=== PATIENT | female | born 1985 | race Caucasian/White ===

== ENCOUNTER 2024-06-10 15:13 | Inpatient (IN) | payer MEDICARE, SELFPAY ==
[2024-06-10] VITALS (13 sets, daily range): BP systolic 96–128; BP diastolic 52–88; PULSE 81–102; RESP 12–26; TEMP 36.2–37; O2SAT 88–100; BMI 30.4; BMI 30.6
--- NOTE | 2024-06-10 15:29 | EKG12_ITS ---
Test Reason : SOB Blood Pressure : / mmHG Vent. Rate : 096 BPM Atrial Rate : 096 BPM P-R Int : 138 ms QRS Dur : 098 ms QT Int : 392 ms P-R-T Axes : 029 -85 061 degrees QTc Int : 495 ms Normal sinus rhythm Left axis deviation Nonspecific T wave abnormality Prolonged QT Abnormal ECG Confirmed by Justice Hernandez ([id number]), story editor BONNY ALVA ([id number]) on 06/11/2024 10:31:55 AM Referred By: Confirmed By:Justice Hernandez
--- NOTE | 2024-06-10 15:31 | ED.VIS.DYS ---
HPI History of Present Illness Chief Complaint: Shortness of Breath Informant: patient and spouse/S.O. Narrative Narrative: History of asthma currently vaping presents from PCP office 3-day history of worsening cough and dyspnea. States a family member just recent diagnosed RSV pneumonia. Patient reports yesterday pulse ox was in the 30s and 50s she used her significant other's oxygen. Reports chest tightness pain with deep breath. Patient with COVID 2020 hospitalized for 30 days she was not on the ventilator. Reports went home on oxygen for a month. Has been vaccinated with 3 vaccinations of COVID. Denies recent travel or surgeries. No history of PE or DVT. States nothing coming up with the cough. Increasing wheezing at home no history of diabetes. In PCP office pulse ox in the 80s. Sent in here by EMS. Reports home COVID test 2 days ago was negative. Reports symptoms of diarrhea myalgias. PE Risk Factors: Negative for OCP + Smoking + > 35, Recent immobilization, Recent surgery or Recent travel Prior similar symptoms: Yes PFSH PFSH Medical History (Updated 06/10/24 @ 20:14 by Nahed Bang) Bipolar disorder Anxiety Depression Hypothyroidism Rheumatoid arthritis Osteoporosis GERD (gastroesophageal reflux disease) Smoker Asthma Migraines Seizures Home Medications ?Medication ?Instructions ?Recorded ?Last Taken ?Type albuterol sulfate 90 mcg/actuation 2 puff inhalation Q4H PRN 06/10/24 06/10/24 History aerosol inhaler (Ventolin HFA) shortness of breath or wheezing clonazepam 0.5 mg tablet 0.5 mg PO DAILY 06/10/24 06/09/24 History duloxetine 30 mg capsule,delayed 90 mg PO DAILY 06/10/24 06/10/24 History release gabapentin 800 mg tablet 1,600 mg PO TID 06/10/24 06/10/24 History hydroxychloroquine 200 mg tablet 400 mg PO DAILY 06/10/24 06/10/24 History ipratropium 0.5 mg-albuterol 3 mg 3 ml inhalation Q8H PRN shortness 06/10/24 06/09/24 History (2.5 mg base)/3 mL nebulization of breath soln levothyroxine 200 mcg tablet 200 mcg PO DAILY 06/10/24 06/10/24 History quetiapine 300 mg tablet 300 mg PO QHS 06/10/24 06/09/24 History rimegepant 75 mg disintegrating 75 mg PO QODAY 06/10/24 Unknown History tablet (Nurtec ODT) Allergy/AdvReac Type Severity Reaction Status Date / Time leflunomide Allergy Severe Abd Verified 06/10/24 15:21 cramps/diarrhea NSAIDS (Non-Steroidal Allergy Severe Other Verified 06/10/24 15:21 Anti-Inflamma atomoxetine Allergy Intermediate NEEDS Verified 06/10/24 15:21 FOLLOW-UP cefprozil (From Cefzil) Allergy Intermediate Rash Verified 06/10/24 15:21 sucralfate Allergy Intermediate Nausea Verified 06/10/24 15:21 Surgical History (Updated 06/10/24 @ 20:14 by Nahed Bang) History of cholecystectomy Social History Smoking Status: Former smoker ROS ROS ED Constitutional Constitutional ED: Denies chills, fever(s) or sweats Eyes Eyes: Denies change in vision ENT ENT ED: Denies dysphagia or sore throat Cardiovascular Cardiovascular: Reports chest pain; Denies leg edema, palpitations or racing heartbeat Respiratory/Chest Respiratory/Chest: Reports cough, dyspnea and dyspnea on exertion Gastrointestinal Gastrointestinal: Reports diarrhea; Denies abdominal pain, nausea or vomiting Genitourinary Genitourinary ED: Denies dysuria, hematuria or urinary frequency Musculoskeletal Musculoskeletal: Reports myalgias; Denies back pain, extremity pain or neck pain Integumentary Denies rash or wounds Neurologic Neurologic: Denies headache(s), paresthesias or weakness EXAM Physical Exam Const Vital Signs: 06/10/24 15:16 06/10/24 15:18 06/10/24 15:41 Temperature 97.2 F L 97.2 F L Temperature Source Temporal Temporal Pulse Rate 102 H 102 H 97 Respiratory Rate 26 H 26 H 18 Respiratory Effort Respiratory Depth Respiratory Pattern Normal Blood Pressure 96/83 H 96/83 H Blood Pressure Mean 87 87 Pulse Ox 91 91 Oxygen Delivery Method Nasal Cannula Nasal Cannula Oxygen Flow Rate (L/min) 2 2 06/10/24 15:42 06/10/24 15:43 06/10/24 16:18 Temperature 97.2 F L Temperature Source Temporal Pulse Rate 84 Respiratory Rate 13 Respiratory Effort Short of Breath Respiratory Depth Shallow Respiratory Pattern Irregular Blood Pressure 111/58 L Blood Pressure Mean 75 Pulse Ox 98 97 Oxygen Delivery Method Nasal Cannula Room Air Nasal Cannula Oxygen Flow Rate (L/min) 2 2 06/10/24 17:00 06/10/24 17:00 06/10/24 18:00 Temperature 97.2 F L 97.8 F Temperature Source Temporal Temporal Pulse Rate 90 88 86 Respiratory Rate 12 15 15 Respiratory Effort Respiratory Depth Respiratory Pattern Blood Pressure 98/82 H 98/82 H 128/88 H Blood Pressure Mean 87 87 101 Pulse Ox 98 99 99 Oxygen Delivery Method Nasal Cannula Nasal Cannula Oxygen Flow Rate (L/min) 2 Positive well nourished and well developed Constitutional Narrative: 2 L nasal cannula no respiratory distress. General Appearance ED: well developed and NAD HEENT Reports moist mucous membranes normocephalic and atraumatic Eyes EOMs intact bilaterally and conjunctivae normal General Eye ED: Yes normal appearance of both eyes Neck no lymphadenopathy and supple General: Negative for tenderness Chest Wall Chest: Negative for tenderness Resp Resp Narrative: Coarse breath sounds throughout Effort and Inspection: symmetric chest movement; Negative for respiratory distress Cardio regular rhythm and no murmurs Rate: tachycardic Peripheral Pulses: pulses 2+ throughout GI normal to inspection, nondistended, normoactive bowel sounds and non-tender Palpation: Negative for guarding or rebound tenderness present Back/Spine no CVA tenderness and no thoracic nor lumbar tenderness Extremity normal to inspection General Extremety ED: Negative for edema or tenderness General Extremity: Negative for edema Neuro oriented x3 and no sensory deficits noted Sensorium / Orientation: awake and alert Skin no rashes or lesions noted and no wounds MDM MDM MDM Narrative Medical decision making narrative: Interventions / MDM: Differential diagnosis: Pneumonia, hypoxia Diagnosis considered but do not suspect: Sepsis however lactic acid normal. ACS however EKG no ischemic findings and negative cardiac enzymes. pulmonary emboli however CT negative. My EKG interpretation: Sinus rhythm 96, no ST changes. Imaging independently reviewed and interpreted by myself: 1 view chest x-ray right middle lobe infiltrate. Per radiology questionable mass. CT PE study: Infiltrates right side of the lung there is no PE no masses. Per radiology fluid-filled distal esophagus. Also read by radiology. Patient denied any trouble swallowing or any vomiting. External documents reviewed: N/A Test considered but not ordered:N/A ED course: Patient currently on 2 L nasal cannula no respiratory distress. Reported significant low pulse ox at home with COVID-like symptoms. Aerosol treatments ordered dexamethasone COVID flu and RSV test sent. Chest x-ray and labs. Will require admission due to oxygen requirement. COVID, flu, RSV negative. Chest x-ray concern infiltrates, questionable mass per radiologist. She had 18,000 white count she is initially tachycardic on arrival. Sepsis labs of lactic acid and blood culture obtained. Covered with Rocephin and Zithromax. CT chest negative for PE noted multilobar infiltrate. Stable on 3 L oxygen. Discussed with hospitalist Dr. Lin for admission. Re-evaluation: stable Disposition discussed with patient/family/significant other: Patient and significant other Case discussed with consulting clinician: Hospitalist This note was generated with [employer] dictation software. It may contain incorrect words, spelling, and punctuation that were not noted in checking the note before signing. Lab Data Attestation: I reviewed the patient's lab results. Labs: Laboratory Results - last 24 hr 06/10/24 06/10/24 16:02 17:15 WBC 18.7 H RBC 3.72 L Hgb 10.4 L Hct 32.2 L MCV 86.6 MCH 28.0 MCHC 32.3 RDW Std Deviation 48.7 H RDW Coeff of Maxi 15.8 H Plt Count 252 MPV 9.9 Immature Gran % (Auto) 0.500 Neut % (Auto) 86.0 H Lymph % (Auto) 4.4 L [place] % (Auto) 8.6 Eos % (Auto) 0.1 Baso % (Auto) 0.4 Absolute Neuts (auto) 16.0 H Absolute Lymphs (auto) 0.82 L Nucleated RBC % 0 Diff Path Review January foll PT 15.3 H INR 1.2 APTT 36.8 H Sodium 139 Potassium 3.3 L Chloride 109 H Carbon Dioxide 27.0 Anion Gap 3 L BUN 14 Creatinine 1.06 H Estim Creat Clear Calc 78.54 Est GFR (MDRD) Af Amer 74 Est GFR (MDRD) Non-Af 61 BUN/Creatinine Ratio 13.2 Glucose 91 Lactic Acid 1.1 Calcium 8.9 Troponin I High Sens 8 Serum , Qual NEGATIVE ABG Data ABG results: ABG 06/10/24 06/10/24 16:14 16:40 Specimen Type ART ART Sample Site R Radial L Radial pH 7.43 7.52 H Bicarbonate Actual 25.9 23.7 Total CO2 27 25 Base Excess 2 1 O2 Saturation 62 L 97 O2 % 2.0 3.0 ABG pCO2 39.1 29.1 L ABG pO2 31 L* 76 [place] Test Positive Positive O2 Delivery Device Cannula Cannula Vent Mode Not entered Not entered Crit Call To/Read Back Yes Blood Gas Notified Whom dr ortiz Blood Gas Notified Time 16:17:25 Radiography Diagnostic Testing: Clinical Impression(s) from Imaging Studies Chest X-Ray 06/10/24 16:15 IMPRESSION: Right lower lobe mass or masslike consolidative infiltrate. CT would be helpful for further assessment if clinically warranted Electronically Signed: Neal Ann MD at 16:27 EDT , Chest CTA 06/10/24 16:35 IMPRESSION: Probable viral pneumonic infiltrates in the right lung. Incidental finding of diffusely distended fluid-filled esophagus of uncertain etiology possibly due to reflux, achalasia or partially obstructing lesion. Clinical correlation recommended Electronically Signed: Neal Ann MD at 17:32 EDT , Discharge Plan Disposition Disposition: Acute Care Hospital [facility] Discharge Date/Time: 06/10/24 19:44
--- NOTE | 2024-06-10 15:33 | NURSING ---
NO OLD EKGS
[2024-06-10] MEDS: Ipratropium/Albuterol Sulfate 3 ML AMPUL.NEB INHALATION (15:40)
[2024-06-10] MEDS: 0.9% Normal Saline (500mL Bag) 500 ML 1000 ML IV (16:03)
[2024-06-10] MEDS: dexAMETHasone 10 MG/ML Vial 6 MG IV (16:03)
--- NOTE | 2024-06-10 16:15 | RAD_ITS ---
STUDY: X-RAY CHEST REASON FOR EXAM: Female, 39 years old. cough TECHNIQUE: AP portable COMPARISON: None. FINDINGS: There is a mass or masslike consolidative density in the right lower lobe possibly due to pneumonia though cannot definitively exclude coexisting parenchymal nodule... There is no demonstrated pleural abnormality. Mediport catheter noted on the right with tip in distal superior vena cava Normal size heart. Normal mediastinum and tay. Normal visualized pulmonary arteries. Normal visualized aortic arch and descending thoracic aorta. Postop change status median sternotomy. Normal visualized thoracic spine. Normal visualized ribs, clavicles, and shoulders. There is no demonstrated abnormality of the visualized soft tissue structures of the upper abdomen. RAD/Chest 1 View (Portable) IMPRESSION: Right lower lobe mass or masslike consolidative infiltrate. CT would be helpful for further assessment if clinically warranted Electronically Signed: Neal Ann MD at 16:27 EDT ,
[2024-06-10 16:17] LABS: Absolute Lymphocyte Count 0.82 X10^3/uL (0.83-4.51); Basophil# 0.08 X10^3/uL; Basophil% 0.4 % (0-1); Eosinophil# 0.01 X10^3/uL; Eosinophils% 0.1 % (0-5); Hematocrit 32.2 % (37-47); Hemoglobin 10.4 g/dL (12.0-15.0); Lymphocyte # 0.82 X10^3/ul (0.83-4.51); Lymphocyte % 4.4 % (19-41); Mean Corp Hgb Conc 32.3 g/dL (32-36); Mean Corpuscular Volume 86.6 fL (81-99); Mean Platelet Vol. 9.9 fl (6.2-12.0); Monocyte# 1.61 X10^3/uL; Monocyte% 8.6 % (0-10); NRBC Flagged by Analyzer 0 % (0-5); Neutrophil # 16.04 X10^3/uL (2.7-7.7); POSITIVE DIFFERENTIAL YES; Platelet Count 252 K/mm3 (150-450); RBC Distribution Width CV 15.8 % (11.6-14.6); RBC Distribution Width SD 48.7 fl (35.1-43.9); Red Blood Count 3.72 M/mm3 (4.2-5.4); White Blood Count 18.7 K/mm3 (4.4-11.0)
[2024-06-10 16:20] LABS: Allen Test Positive; Base Excess 2 mmol/L (-2 to +2); Bicarbonate 25.9 mmol/L (22-26); Mode Not entered; O2 Delivery Device Cannula; PO2 31 mmHG (75-100); SITE R Radial; SO2 62 % (95-99); Total Carbon Dioxide 27 mmol/L; pCO2 39.1 mmHg (35-45); pH 7.43 (7.35-7.45)
[2024-06-10 16:20] LABS: Differential Indicated SCAN CRITERIA MET
[2024-06-10 16:26] LABS: Internal QC Validated? YES +Cl - CLEAR BKGD; Pregnancy, Serum, hCG Quali. NEGATIVE Negative; Record Kit Lot#, Serum Preg. 772476
[2024-06-10] MEDS: Ketorolac 15 MG/ML Vial IV (16:29)
--- NOTE | 2024-06-10 16:35 | CT_ITS ---
STUDY: CTA CHEST REASON FOR EXAM: Female, 39 years old. dyspnea -- mass vs. infiltrate, hypoxia RADIATION DOSAGE (If Supplied By Facility): CTDIvol = ( 8.41 ) mGy, DLP = ( 405.03 ) mGycm TECHNIQUE: The examination was performed with the intravenous administration of IV 100mL Isovue-370. Post-processing of the angiographic images was performed, with multiplanar reformation and 3D reconstruction. Individualized dose optimization techniques were used for this CT. COMPARISON: None. FINDINGS: Normal enhancement of the main pulmonary artery and right and left pulmonary arteries. Normal enhancement of the bilateral peripheral pulmonary arteries. There is no demonstrated pulmonary embolism. Normal thoracic aorta and visualized great vessels. There is no demonstrated aortic dissection. Normal heart and pericardium. Normal mediastinum. Normal hilar regions. Normal visualized trachea and bronchi. The lungs are well expanded. There are multinodular infiltrate in the right upper lobe with groundglass opacity as well as superior segment of the right lower lobe, right middle lobe and to lesser extent the right base. There is minor interstitial thickening at left base. Normal pleura. Postop change status post median sternotomy.. Normal osseous structures. Diffusely distended fluid-filled esophagus possibly due to reflux, achalasia or partial obstructing lesion at the gastroesophageal junction. Normal visualized upper abdomen. CT/CTA Chest W/WO Contrast IMPRESSION: Probable viral pneumonic infiltrates in the right lung. Incidental finding of diffusely distended fluid-filled esophagus of uncertain etiology possibly due to reflux, achalasia or partially obstructing lesion. Clinical correlation recommended Electronically Signed: Neal Ann MD at 17:32 EDT ,
[2024-06-10 16:36] LABS: Anion Gap 3 (5-15); BUN 14 mg/dL (7-18); BUN/Creat Ratio 13.2 RATIO (10-20); Calcium,Total 8.9 mg/dL (8.5-10.1); Chloride 109 mmol/L (98-107); Creatinine, Serum 1.06 mg/dL (0.55-1.02); EST Glomerular Filtration Rate 61 mL/min (>60); Est Glom Filt Rate - Afr Amer 74 mL/min (>60); Estimated Creatinine Clearance 78.54 ml/min; Glucose 91 mg/dL (74-106); Potassium 3.3 mmol/L (3.5-5.1); Sodium Level 139 mmol/L (136-145); Troponin-I HS (w/2H Reflex) 8 pg/mL (3.0-54.0)
[2024-06-10 16:37] LABS: International Normalized Ratio 1.2; Prothrombin Time (Protime)PT. 15.3 SECONDS (11.7-14.9)
[2024-06-10 16:38] LABS: Partial Thromboplast Time 36.8 Seconds (24.1-36.2)
[2024-06-10 16:45] LABS: Allen Test Positive; Base Excess 1 mmol/L (-2 to +2); Bicarbonate 23.7 mmol/L (22-26); Blood Gas Specimen Type ART; Mode Not entered; O2 Delivery Device Cannula; PO2 76 mmHG (75-100); SITE L Radial; SO2 97 % (95-99); Total Carbon Dioxide 25 mmol/L; pCO2 29.1 mmHg (35-45); pH 7.52 (7.35-7.45)
[2024-06-10] MEDS: fentaNYL 100 MCG/2 ML Ampul 50 MCG IV (17:15)
[2024-06-10] MEDS: 0.9% Normal Saline (1000mL) 1,000 ML 999 ML IV (17:15)
[2024-06-10 17:49] LABS: Lactic Acid 1.1 mmol/L (0.4-1.9)
[2024-06-10 18:10] LABS: Reflex Troponin-HS? (from REC) Y
--- NOTE | 2024-06-10 18:15 | HP.PCM.HOS_ITS ---
HPI - General General Date of Admission: 06/10/24 Date of Service: 06/10/24 Chief Complaint: SOB, hypoxia, cough HPI Narrative BONNY OREILLY, is a 39-year-old female with history of COVID in 2020, asthma, hypothyroidism, depression and anxiety, tobacco use presented to [facility] ED 06/10/2024 from PCP office for 3 days of worsening cough and dyspnea. Patient reports pulse ox was 30s and 50s yesterday and was using her significant others O2. Also has some chest tightness and pain with deep breathing, has RSV exposure. Has also had some cough that is nonproductive and increased wheezing at home. Pulse ox at PCPs office in the 80s and sent here by EMS. On arrival patient 91% on 2 L nasal cannula. Patient found to have white blood cell count of 18.7 and was hypoxic. CTA of chest with no PE but had right sided pneumonia. COVID, RSV, flu negative but full viral panel pending. Given the elevated white cell count with hypoxia and infiltrate patient treated with DuoNeb and Coverage and hospitalist contacted for admission. Patient seen at bedside and reports she has been having increased cough and shortness of breath over the past week, has also been having some diarrhea over the past couple of weeks and has not had a very good appetite over that same time. Has been having right sided chest and right sided back pain. Also reports she thinks that she has been having fevers but has not measured them. Has been using her albuterol rescue inhaler due to her history of asthma but it is not as helpful at this time. Patient yesterday check pulse ox at home and was 50% and put on her 's O2. Saw PCP today and due to being hypoxic in the ED she was sent to the ED. Continues to feel short of breath and generally unwell despite present interventions but O2 sats improving. PFSH Home Medications ?Medication ?Instructions ?Recorded ?Last Taken ?Type albuterol sulfate 90 mcg/actuation 2 puff inhalation Q4H PRN 06/10/24 06/10/24 History aerosol inhaler (Ventolin HFA) shortness of breath or wheezing clonazepam 0.5 mg tablet 0.5 mg PO DAILY 06/10/24 06/09/24 History duloxetine 30 mg capsule,delayed 90 mg PO DAILY 06/10/24 06/10/24 History release gabapentin 800 mg tablet 1,600 mg PO TID 06/10/24 06/10/24 History hydroxychloroquine 200 mg tablet 400 mg PO DAILY 06/10/24 06/10/24 History ipratropium 0.5 mg-albuterol 3 mg 3 ml inhalation Q8H PRN shortness 06/10/24 06/09/24 History (2.5 mg base)/3 mL nebulization of breath soln levothyroxine 200 mcg tablet 200 mcg PO DAILY 06/10/24 06/10/24 History quetiapine 300 mg tablet 300 mg PO QHS 06/10/24 06/09/24 History rimegepant 75 mg disintegrating 75 mg PO QODAY 06/10/24 Unknown History tablet (Nurtec ODT) Allergy/AdvReac Type Severity Reaction Status Date / Time leflunomide Allergy Severe Abd Verified 06/10/24 15:21 cramps/diarrhea NSAIDS (Non-Steroidal Allergy Severe Other Verified 06/10/24 15:21 Anti-Inflamma atomoxetine Allergy Intermediate NEEDS Verified 06/10/24 15:21 FOLLOW-UP cefprozil (From Cefzil) Allergy Intermediate Rash Verified 06/10/24 15:21 sucralfate Allergy Intermediate Nausea Verified 06/10/24 15:21 Social History Smoking Status: Never smoker ROS ROS Narrative General: Has felt feverish HENT: Some headaches and sore throat EYES: Denies changes in vision Resp: Increasing shortness of breath and cough, difficulty expelling sputum Cardiac: Right sided chest and back pain GI: Denies abdominal pain, has had some loose stool, denies nausea/vomiting : Denies changes in urination Extremity: Denies swelling MSK: Feels generally weak and unwell Neuro: Denies any numbness/tingling Heme: Denies any bleeding or bruising Skin: Denies rashes Psychiatric: No complaints voiced Vital Signs Vital Signs Vital Signs: 06/10/24 15:16 06/10/24 15:18 06/10/24 15:41 Temperature 97.2 F L 97.2 F L Temperature Source Temporal Temporal Pulse Rate 102 H 102 H 97 Respiratory Rate 26 H 26 H 18 Respiratory Effort Respiratory Depth Respiratory Pattern Normal Blood Pressure 96/83 H 96/83 H Blood Pressure Mean 87 87 Pulse Ox 91 91 Oxygen Delivery Method Nasal Cannula Nasal Cannula Oxygen Flow Rate (L/min) 2 2 06/10/24 15:42 06/10/24 15:43 06/10/24 16:18 Temperature 97.2 F L Temperature Source Temporal Pulse Rate 84 Respiratory Rate 13 Respiratory Effort Short of Breath Respiratory Depth Shallow Respiratory Pattern Irregular Blood Pressure 111/58 L Blood Pressure Mean 75 Pulse Ox 98 97 Oxygen Delivery Method Nasal Cannula Room Air Nasal Cannula Oxygen Flow Rate (L/min) 2 2 06/10/24 17:00 06/10/24 17:00 06/10/24 18:00 Temperature 97.2 F L 97.8 F Temperature Source Temporal Temporal Pulse Rate 90 88 86 Respiratory Rate 12 15 15 Respiratory Effort Respiratory Depth Respiratory Pattern Blood Pressure 98/82 H 98/82 H 128/88 H Blood Pressure Mean 87 87 101 Pulse Ox 98 99 99 Oxygen Delivery Method Nasal Cannula Nasal Cannula Oxygen Flow Rate (L/min) 2 Weight Weight: 85.6 kg Body Mass Index (BMI) 30.4 Results Lab / Micro Data 06/10/24 16:02 06/10/24 16:02 Labs: Laboratory Results - last 24 hr 06/10/24 16:02: WBC 18.7 H, RBC 3.72 L, Hgb 10.4 L, Hct 32.2 L, MCV 86.6, MCH 28.0, MCHC 32.3, RDW Std Deviation 48.7 H, RDW Coeff of Maxi 15.8 H, Plt Count 252, MPV 9.9, Immature Gran % (Auto) 0.500, Neut % (Auto) 86.0 H, Lymph % (Auto) 4.4 L, [place] % (Auto) 8.6, Eos % (Auto) 0.1, Baso % (Auto) 0.4, Absolute Neuts (auto) 16.0 H, Absolute Lymphs (auto) 0.82 L, Nucleated RBC % 0, Diff Path Review January, PT 15.3 H, INR 1.2, APTT 36.8 H, Sodium 139, Potassium 3.3 L, C hloride 109 H, Carbon Dioxide 27.0, Anion Gap 3 L, BUN 14, Creatinine 1.06 H, Estim Creat Clear Calc 78.54, Est GFR (MDRD) Af Amer 74, Est GFR (MDRD) Non-Af 61, BUN/Creatinine Ratio 13.2, Glucose 91, Calcium 8.9, Troponin I High Sens 8, Serum , Qual NEGATIVE 06/10/24 17:15: Lactic Acid 1.1 Micro: Microbiology 06/10/24 16:02 Mucosa - Nose SARS-CoV-2, Influenza & RSV (PCR) - Final ABG Data ABG results: ABG 06/10/24 06/10/24 16:14 16:40 Specimen Type ART ART Sample Site R Radial L Radial pH 7.43 7.52 H Bicarbonate Actual 25.9 23.7 Total CO2 27 25 Base Excess 2 1 O2 Saturation 62 L 97 O2 % 2.0 3.0 ABG pCO2 39.1 29.1 L ABG pO2 31 L* 76 [place] Test Positive Positive O2 Delivery Device Cannula Cannula Vent Mode Not entered Not entered Crit Call To/Read Back Yes Blood Gas Notified Whom dr ortiz Blood Gas Notified Time 16:17:25 Imaging Radiology Impression Chest X-Ray 06/10/24 16:15 IMPRESSION: Right lower lobe mass or masslike consolidative infiltrate. CT would be helpful for further assessment if clinically warranted Electronically Signed: Neal Ann MD at 16:27 EDT , Chest CTA 06/10/24 16:35 IMPRESSION: Probable viral pneumonic infiltrates in the right lung. Incidental finding of diffusely distended fluid-filled esophagus of uncertain etiology possibly due to reflux, achalasia or partially obstructing lesion. Clinical correlation recommended Electronically Signed: Neal Ann MD at 17:32 EDT , Assessment & Plan Assessment/Plan (1) Pneumonia: PLAN: Plan # Hypoxia suspect secondary to right-sided pneumonia -Imaging: CTA w/ no PE but R sided pneumonia -DuoNebs and as needed albuterol -Sputum culture, COVID negative, respiratory panel pending -Urine antigens -Mucinex, I/S -Rocephin and azithromycin -Admit to floor, continuous O2 monitoring # Fluid-filled esophagus -Seen on CT of chest -Unclear significance but could be reflux, achalasia or partially obstructing lesion -GI consulted # History of chronic asthma -Uses albuterol as needed at home -Nebs as above -Does not seem to be in acute exacerbation, suspect this is all pneumonia related, no wheezing at this time either # Mood disorder NOS -Continue Seroquel and duloxetine -Continue Klonopin as needed -Insert gabapentin #Hypothyroidism -Continue Synthroid #Tobacco use -Advise cessation -Nicotine replacement available if desired # On hydroxychloroquine -Will need to clarify indication, when discussing medications and health problems with patient earlier at bedside this was not mentioned -Will continue at this time #Chronic right sided chest port -Patient has history of being on IV antibiotics and steroids and has had difficult access since that time -She is chronic right sided chest port in place, noted # Hypokalemia -Replace -Recheck in a.m. #DVT ppx: Lovenox subcu Sunshine Lin MD Charges/Coding Visit Charges Inpatient E&M: 54963 Init Hosp L2
[2024-06-10] MEDS: Ceftriaxone 1 GM/50 ML BAG IV (18:21)
--- NOTE | 2024-06-10 18:22 | NURSING ---
PCU MARK LESLIE,
[2024-06-10] MEDS: Azithromycin 500 MG in Dextrose 5%-Water (250mL Bag) 250 ML 250 MG IV (18:54)
[2024-06-10 19:05] LABS: Troponin-I HS 8 pg/mL (3.0-54.0)
[2024-06-10] MEDS: Morphine 4 MG/ML Syringe IV (19:17)
[2024-06-10] MEDS: Gabapentin 800 MG Tablet 1600 MG PO (21:48)
[2024-06-10] MEDS: QUEtiapine 100 MG Tablet 300 MG PO (21:48)
[2024-06-10] MEDS: guaiFENesin 1,200 MG Tablet 1200 MG PO (21:48)
[2024-06-10] MEDS: 0.9% Saline Lock 10 ML Syringe IV (21:49)
[2024-06-10] MEDS: Potassium Phosphate 15 MM in 0.9% Normal Saline (250mL Bag) 250 ML 125 MM IV (21:52)
[2024-06-10] MEDS: Morphine 2 MG/ML Syringe IV (21:52)
[2024-06-10] MEDS: Albuterol 2.5 MG/3 ML VIAL.NEB. INHALATION (22:49)
[2024-06-11] VITALS (20 sets, daily range): BP systolic 92–131; BP diastolic 50–73; PULSE 66–87; RESP 15–20; TEMP 36.2–36.9; O2SAT 91–97
[2024-06-11] MEDS: 0.9% Normal Saline (500mL Bag) 500 ML 999 ML IV (01:05)
[2024-06-11] MEDS: oxyCODONE 5 MG Tablet PO (06:23)
[2024-06-11] MEDS: Gabapentin 800 MG Tablet 1600 MG PO ×2 (06:23→22:52)
[2024-06-11] MEDS: Levothyroxine 100 MCG Tablet 200 MCG PO (06:23)
[2024-06-11 07:05] LABS: Blood Gas Specimen Type VEN
[2024-06-11] MEDS: Ipratropium/Albuterol Sulfate 3 ML AMPUL.NEB INHALATION ×5 (07:15→22:56)
[2024-06-11 07:41] LABS: Absolute Neutrophil Count 13.3 X10^3/uL (2.0-7.7); Basophil# 0.04 X10^3/uL; Basophil% 0.3 % (0-1); Hematocrit 27.3 % (37-47); Hemoglobin 8.7 g/dL (12.0-15.0); Lymphocyte % 2.7 % (19-41); Mean Corp Hgb Conc 31.9 g/dL (32-36); Mean Corpuscular Hgb 28.2 pg (27.0-32.0); Mean Corpuscular Volume 88.3 fL (81-99); Mean Platelet Vol. 9.9 fl (6.2-12.0); Monocyte# 0.74 X10^3/uL; Monocyte% 5.1 % (0-10); NRBC Flagged by Analyzer 0 % (0-5); Neutrophil # 13.29 X10^3/uL (2.7-7.7); Neutrophil % 90.7 % (47-70); POSITIVE DIFFERENTIAL YES; Platelet Count 198 K/mm3 (150-450); RBC Distribution Width CV 16.3 % (11.6-14.6); RBC Distribution Width SD 51.8 fl (35.1-43.9); Red Blood Count 3.09 M/mm3 (4.2-5.4); White Blood Count 14.7 K/mm3 (4.4-11.0)
--- NOTE | 2024-06-11 08:14 | PCM.PN.HOSP ---
Reason for Visit Reason for Visit: Diagnoses Pneumonia, unspecified organism (06/10/24) Subjective Subjective Feeling ok. Objective Data Objective Data Vital Signs: Vital Signs Temp Pulse Resp BP Pulse Ox O2 Del Method O2 Flow Rate 36.2 C L 71 20 H 98/59 L 91 Nasal Cannula 2 06/11/24 02:26 06/11/24 07:12 06/11/24 07:12 06/11/24 02:26 06/11/24 07:12 06/11/24 07:12 06/11/24 07:12 Oxygen Flow Rate (L/min) 2 Oxygen Delivery Method Nasal Cannula Weight: 85.956 kg Body Mass Index (BMI) 30.6 Intake & Output: Intake and Output for Last 24 Hours 06/09/24 06/10/24 06/11/24 23:59 23:59 23:59 Intake Total 2042.5 / 2042.5 500 / 500 Balance 2042.5 / 2042.5 500 / 500 Lab / Micro Data 06/11/24 07:30 06/11/24 07:30 Labs: Laboratory Results - last 24 hr 06/10/24 16:02: WBC 18.7 H, RBC 3.72 L, Hgb 10.4 L, Hct 32.2 L, MCV 86.6, MCH 28.0, MCHC 32.3, RDW Std Deviation 48.7 H, RDW Coeff of Maxi 15.8 H, Plt Count 252, MPV 9.9, Immature Gran % (Auto) 0.500, Neut % (Auto) 86.0 H, Lymph % (Auto) 4.4 L, [place] % (Auto) 8.6, Eos % (Auto) 0.1, Baso % (Auto) 0.4, Absolute Neuts (auto) 16.0 H, Absolute Lymphs (auto) 0.82 L, Nucleated RBC % 0, Diff Path Review January, PT 15.3 H, INR 1.2, APTT 36.8 H, Sodium 139, Potassium 3.3 L, Chloride 109 H, Carbon Dioxide 27.0, Anion Gap 3 L, BUN 14, Creatinine 1.06 H, Estim Creat Clear Calc 78.54, Est GFR (MDRD) Af Amer 74, Est GFR (MDRD) Non-Af 61, BUN/Creatinine Ratio 13.2, Glucose 91, Calcium 8.9, Troponin I High Sens 8, Serum , Qual NEGATIVE 06/10/24 17:15: Lactic Acid 1.1 06/10/24 18:18: Troponin I High Sens 8 06/11/24 07:30: WBC 14.7 H, RBC 3.09 L, Hgb 8.7 L, Hct 27.3 L, MCV 88.3, MCH 28.2, MCHC 31.9 L, RDW Std Deviation 51.8 H, RDW Coeff of Maxi 16.3 H, Plt Count 198, MPV 9.9, Immature Gran % (Auto) 1.200 H, Neut % (Auto) 90.7 H, Lymph % (Auto) 2.7 L, Independence % (Auto) 5.1, Eos % (Auto) 0.0, Baso % (Auto) 0.3, Absolute Neuts (auto) 13.3 H, Absolute Lymphs (auto) 0.40 L, Nucleated RBC % 0 Micro: Microbiology 06/10/24 16:02 Mucosa - Nose SARS-CoV-2, Influenza & RSV (PCR) - Final ABG Data ABG results: ABG 06/10/24 06/10/24 16:14 16:40 Specimen Type HAO ART Sample Site R Radial L Radial pH 7.43 7.52 H Bicarbonate Actual 25.9 23.7 Total CO2 27 25 Base Excess 2 1 O2 Saturation 62 L 97 O2 % 2.0 3.0 ABG pCO2 39.1 29.1 L ABG pO2 31 L* 76 Parish Test Positive Positive O2 Delivery Device Cannula Cannula Vent Mode Not entered Not entered Crit Call To/Read Back Yes Blood Gas Notified Whom dr barnett Blood Gas Notified Time 16:17:25 Radiography Diagnostic Testing: Radiology Impression Chest X-Ray 06/10/24 16:15 IMPRESSION: Right lower lobe mass or masslike consolidative infiltrate. CT would be helpful for further assessment if clinically warranted Electronically Signed: Neal Ann MD at 16:27 EDT , Chest CTA 06/10/24 16:35 IMPRESSION: Probable viral pneumonic infiltrates in the right lung. Incidental finding of diffusely distended fluid-filled esophagus of uncertain etiology possibly due to reflux, achalasia or partially obstructing lesion. Clinical correlation recommended Electronically Signed: Neal Ann MD at 17:32 EDT Reading Location ID and State: [facility] [place] / [place] Tel , Service support , Physical Exam Const alert and no apparent distress HEENT head/scalp atraumatic and moist oral mucous membranes Resp normal respiratory effort, no retractions, no use of accessory muscles and clear to auscultation bilaterally Cardio regular rate, regular rhythm, S1 normal heart sound and S2 normal heart sound GI normal to inspection, nondistended, normoactive bowel sounds, soft to palpation, non-tender and non-distended Extremity normal to inspection and full ROM Neuro Sensorium / Orientation: awake and alert Assessment & Plan Assessment/Plan (1) Pneumonia: PLAN: Plan Suspected pneumococcal pneumonia Right upper and right middle lobe infiltrate Ceftriaxone and azithromycin. Pulmonary toilet Sputum culture, COVID negative, respiratory panel pending, Urine antigens Fluid-filled esophagus Seen on CT of chest -Unclear significance but could be reflux, achalasia or partially obstructing lesion GI consulted. Plan for EGD. Pt with known GERD. Hypokalemia resolved after replacement Anemia Hg dropped from 10.4 to 8.7 Monitor. Check iron studies, B12, folate Chronic conditions History of chronic asthma-Uses albuterol as needed at home-Nebs as above-Does not seem to be in acute exacerbation, suspect this is all pneumonia related, no wheezing at this time either Mood disorder NOS-Continue Seroquel and duloxetine-Continue Klonopin as needed-Insert gabapentin Hypothyroidism-Continue Synthroid Tobacco use-Advise cessation-Nicotine replacement available if desired On hydroxychloroquine-Will need to clarify indication, when discussing medications and health problems with patient earlier at bedside this was not mentioned -Will continue at this time Chronic right sided chest port-Patient has history of being on IV antibiotics and steroids and has had difficult access since that time-She is chronic right sided chest port in place, noted VTE prophylaxis: LMWH Charges/Coding Visit Charges Inpatient E&M: 17678 Subs Hosp L2
[2024-06-11 08:15] LABS: AST(SGOT) 23 U/L (15-37); Alanine Aminotransfer ALT/SGPT 21 U/L (13-56); Albumin, Serum 3.4 g/dL (3.2-5.0); Alkaline Phosphatase 74 U/L (45-117); Anion Gap 6 (5-15); BUN 13 mg/dL (7-18); BUN/Creat Ratio 16.1 RATIO (10-20); Calcium,Total 8.4 mg/dL (8.5-10.1); Chloride 111 mmol/L (98-107); Creatinine, Serum 0.81 mg/dL (0.55-1.02); EST Glomerular Filtration Rate 84 mL/min (>60); Est Glom Filt Rate - Afr Amer 102 mL/min (>60); Estimated Creatinine Clearance 102.99 ml/min; Globulin 3.3 g/dL (2.2-4.2); Glucose 115 mg/dL (74-106); Magnesium 1.8 mg/dL (1.6-2.6); Protein, Total 6.7 g/dL (6.4-8.2); Sodium Level 139 mmol/L (136-145)
[2024-06-11 09:09] LABS: Ferritin 85 ng/mL (8-252); Iron 17 ug/dL (50-170); Iron Binding Capacity,Total 336 ug/dL (250-450); PERCENT IRON SATURATION 5.1 % (15.0-55.0)
[2024-06-11 09:35] LABS: Vitamin B12 490 pg/mL (211-911)
[2024-06-11] MEDS: Enoxaparin 40 MG/0.4 ML Syringe SC (09:57)
[2024-06-11] MEDS: Hydroxychloroquine 200 MG Tablet 400 MG PO (09:58)
[2024-06-11] MEDS: guaiFENesin 1,200 MG Tablet 1200 MG PO ×2 (09:58→22:52)
[2024-06-11] MEDS: DULoxetine Hcl 30 MG Capsule 90 MG PO (09:58)
[2024-06-11] MEDS: Morphine 2 MG/ML Syringe IV ×2 (10:11→20:02)
--- NOTE | 2024-06-11 10:30 | CASEMGMT ---
BRENNA BEST Assessment: Face to Face with pt for initial transition planning/care coordination assessment. BRENNA BSET introduced self and role at [facility], pt voices understanding and consents to assessment. Pt is A&O x4 and answers all questions appropriately at this time. Pt lying in bed in no distress. Care providers, pharmacy, and demographics verified/updated. Strata: 1 Admitting Dx: Pneumonia PCP: Steve Specialists: Justus, Gastrologist; Elza, Informal Waiter/Waitress; Ursula, Ladle Liner Helper; Dexter, Orthopedist; Elba RA. Preferred Pharmacy: [facility] Insurance: [facility] Dual complete Prescription Benefit: yes LNOK: Robyn, Friend; Roxy, Significant Other. Living Arrangements: Pt lives with Sig Other, 3 kids and 2 grandkids in a 2 story home with 3 steps to enter. ADLs: Pt states I with ADLs and IADLs at baseline. Transportation: Pt drives self and denies concerns with transportation. DME: Nebulizer, Pulse ox . HHC/SNF: [facility] Hx of. Pt states no concerns with going home at time of dc. BRENNA BEST provided verbal list of local Home O2 providers, pt chose [facility] for oxygen if needed at time of DC. Pt states no further concerns/needs. CM to follow. Advised pt to ask CM if any further question/concerns/needs arise, voices understanding. Pt Goal: Home Plan: Home with family support. Follow for oxygen needs. Fernando CEJA CM
[2024-06-11] MEDS: Lactated Ringers 1,000 ML 15 ML IV (14:23)
--- NOTE | 2024-06-11 14:40 | PRE.ANES_ITS ---
ASA Classification* ASA Classification ASA Classification: 3 Assessment & Plan Anesthesia* Anesthesia Assessment Anesthesia Assessment: Discussed sedation and/or anesthesia options, risks, benefits, and alternatives with patient/parents/legal guardian/POA. Questions invited. The patient/parents/legal guardian/POA seems to understand and agrees to proceed with anesthesia plan. Reviewed the physical assessment, medical history, allergy history and patient home medications list prior to surgery/procedure/anesthetic and documented any changes. Performed airway and anesthesia risk assessments. Anesthesia Type Anesthesia Type: MAC History Source History Obtained from:: Patient and Chart Anesthesia Focused Assessment* Temperature: 97.7 F Pulse Rate: 75 Blood Pressure: 114/58 Respiratory Rate: 18 Pulse Ox: 94 Oxygen Delivery Method: Nasal Cannula Airway Assessment Mouth opens: >3 cm Mallampati Score: III Teeth Condition: Missing (Patient has multiple missing teeth.) Neck Range of motion (ROM): Full ROM Focused Labs Anesthesia Preop lab: CBC WBC 14.7 K/mm3 (4.4-11.0) H 06/11/24 07:30 RBC 3.09 M/mm3 (4.2-5.4) L 06/11/24 07:30 Hgb 8.7 g/dL (12.0-15.0) L 06/11/24 07:30 Hct 27.3 % (37-47) L 06/11/24 07:30 Plt Count 198 K/mm3 (150-450) 06/11/24 07:30 CHEMISTRY Potassium 4.0 mmol/L (3.5-5.1) 06/11/24 07:30 Sodium 139 mmol/L (136-145) 06/11/24 07:30 Magnesium 1.8 mg/dL (1.6-2.6) 06/11/24 07:30 BUN 13 mg/dL (7-18) 06/11/24 07:30 Creatinine 0.81 mg/dL (0.55-1.02) 06/11/24 07:30 Glucose 115 mg/dL (74-106) H 06/11/24 07:30 TSH 37.700 uIU/mL (0.358-3.740) H 06/11/24 07:30 COAG PT 15.3 SECONDS (11.7-14.9) H 06/10/24 16:02 Pre-Assessment Diagnosis/Proposed Procedure Planned Operative Procedure(s): Esophagogastroduodenoscopy. 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 When Was Last Pacemaker Check QUESTION #4 FULL TEXT: You/Your Family Experience fever (hyperthermia) with Anesthesia Last Oral Intake Last Oral intake: Last Oral Intake NPO since Meds taken in AM with sips of water? Meds patient instructed to take am of surgery Any additional information?: Yes Meds taken in AM with sips of water?: Yes PONV PONV - cement finisher apprentice: PONV - cement finisher apprentice Female HX of Motion Sickness HX of N/V After Surgery Non-Smoker Duration of Surgery greater than 60 minutes Number of Risk Factors PONV Score Height & Weight Height & Weight: Anesthesia: Height & Weight Height 5 ft 6 in 06/10/24 20:04 Weight: 85.956 kg 06/10/24 20:04 Body Mass Index (BMI) 30.6 06/10/24 20:04 Respiratory Assessment Respiratory Assessment - cement finisher apprentice: Respiratory Tract Infection Hx - cement finisher apprentice Hx Respiratory Tract Infection Any additional information?: Yes Hx Respiratory Tract Infection: Yes (Currently diagnosed with pneumonia.) STOP Sleep Apnea STOP Sleep Apnea - cement finisher apprentice: STOP Sleep Apnea - cement finisher apprentice Hx Hypertension No 06/10/24 20:09 Hx Sleep Apnea No 06/10/24 20:09 CPAP BIPAP Do you snore loudly (louder Yes 06/10/24 20:09 than talking or can be heard Do you often feel tired/ Yes 06/10/24 20:09 fatigued/ sleepy during daytime? Has anyone observed you stop No 06/10/24 20:09 breathing during sleep? STOP Results Positive 06/10/24 20:09 QUESTION #5 FULL TEXT : Do you snore loudly (louder than talking or can be heard through closed doors)? Tobacco Use History Tobacco Use History - cement finisher apprentice: Tobacco Use History - cement finisher apprentice Tobacco Use Smoking Status Former smoker 06/11/24 07:12 Hx Tobacco Use Yes 06/10/24 20:09 Years Smoking Packs Smoked per Day Smoking Cessation Date was No - quit smoking greater 06/10/24 20:09 within the last 15 years than 15 years ago Hx Smoking Cessation Date Hx Smoking Cessation Yes 06/10/24 20:09 Counseling Hematologic Medial History Hematologic Hx - cement finisher apprentice: Hematologic Medical Hx - contracting officer Hx of Blood Transfusion Yes 06/10/24 20:09 Hx of Transfusion in last 3 No 06/10/24 20:09 Months Date of Last Transfusion (if within last 3 months) Ever experience any problems No 06/10/24 20:09 with transfusion(s)? Specify any problems Hx of Preganancy in last 3 No 06/10/24 20:09 Months Nurse Filling Out Transfusion FSTEINER 06/10/24 20:09 & Questions: Date: 06/10/24 06/10/24 20:09 Time: 20:10 06/10/24 20:09 Patient unable to answer at this time (ie. confused, unrespo /Reproduction History /Reproductive History - cement finisher apprentice: /Reproductive Hx- cement finisher apprentice Hx Now No 06/10/24 20:09 Gestational Age (in weeks): EDC: Hx Hx Para Hx Section SAB No 06/10/24 20:09 Active Medications Active Medications: Current Medications Generic Name Dose Route Start Last Admin Trade Name Freq PRN Reason Stop Dose Admin Acetaminophen 650 mg 06/10/24 20:25 Acetaminophen 325 Mg Tablet PO Q6H PRN PRN Pain 1-10 Or Fever >100.7 Albuterol Sulfate 2.5 mg 06/10/24 20:25 06/10/24 22:49 Albuterol 2.5 Mg/3 Ml Vial.Neb. INHALATION 2.5 mg Q2H PRN PRN Administration SOB &/OR WHEEZING Albuterol/Ipratropium 3 ml 06/10/24 20:25 06/11/24 10:53 Ipratropium/Albuterol Sulfate 3 Ml Ampul.Neb INHALATION 3 ml Q4H.RT JESENIA Administration Clonazepam 0.5 mg 06/10/24 20:25 Clonazepam 0.5 Mg Tablet PO DAILY PRN anxiety Duloxetine HCl 90 mg 06/11/24 10:00 06/11/24 09:58 Duloxetine Hcl 30 Mg Capsule PO 90 mg DAILY JESENIA Administration Enoxaparin Sodium 40 mg 06/11/24 10:00 06/11/24 09:57 Enoxaparin 40 Mg/0.4 Ml Syringe SC 40 mg DAILY JESENIA Administration Gabapentin 1,600 mg 06/10/24 22:00 06/11/24 14:18 Gabapentin 800 Mg Tablet PO Not Given TID JESENIA Guaifenesin 1,200 mg 06/10/24 22:00 06/11/24 09:58 Guaifenesin 1,200 Mg Tablet PO 1,200 mg BID JESENIA Administration Heparin Sodium (Beef Lung) 50 units 06/10/24 20:08 Heparin Pf Lock 10 Units/Ml 50 Units/5 Ml Syringe IV UD PRN Port-a-Cath (VAD)Heparin Flush Hydroxychloroquine Sulfate 400 mg 06/11/24 08:00 06/11/24 09:58 Hydroxychloroquine 200 Mg Tablet PO 400 mg [id number]@0800 JESENIA Administration Hydroxychloroquine Sulfate 300 mg 06/15/24 08:00 Hydroxychloroquine 200 Mg Tablet PO Hassan@0800 [facility] Ceftriaxone Sodium 2 gm/ 50 mls @ 100 mls/hr 06/11/24 22:00 Sodium Chloride IV 06/18/24 22:01 [id number]@2200 JESENIA Azithromycin 500 mg/ Dextrose 255 mls @ 250 mls/hr 06/11/24 22:00 IV 06/16/24 22:01 [id number]@2200 JESENIA Lactated Ringer's 1,000 mls @ 15 mls/hr 06/11/24 14:30 06/11/24 14:23 IV 15 mls/hr .Q48H JESENIA Administration Ketorolac Tromethamine 15 mg 06/10/24 20:25 Ketorolac 15 Mg/Ml Vial IV 06/15/24 20:25 Q6H PRN PRN Pain Score 1-10 Levothyroxine Sodium 200 mcg 06/11/24 06:00 06/11/24 06:23 Levothyroxine 100 Mcg Tablet PO 200 mcg [id number] JESENIA Administration Levothyroxine Sodium 100 mcg 06/15/24 06:00 Levothyroxine 100 Mcg Tablet PO Hassan@0600 JESENIA Melatonin 3 mg 06/10/24 20:25 Melatonin 3 Mg Tablet PO QHS PRN PRN INSOMNIA Morphine Sulfate 2 - 4 mg 06/10/24 20:25 06/11/24 10:11 Morphine 2 Mg/Ml Syringe IV 2 mg Q3H PRN PRN Administration Pain Score 6-10 Morphine Sulfate 2 - 4 mg 06/10/24 20:32 Morphine 4 Mg/Ml Syringe IV Q3H PRN PRN Pain Score 6-10 Nutritional Formula (Lactose Free) 120 ml 06/11/24 08:00 06/11/24 11:34 Ensure Plus High Protein 120 Ml Liquid PO Not Given TIDCM JESENIA Oxycodone HCl 5 mg 06/10/24 20:25 06/11/24 06:23 Oxycodone 5 Mg Tablet PO 5 mg Q4H PRN PRN Administration Pain Score 4-10 Quetiapine Fumarate 300 mg 06/10/24 22:00 06/10/24 21:48 Quetiapine 100 Mg Tablet PO 300 mg QHS JESENIA Administration Senna/Docusate Sodium 2 tablet 06/10/24 20:25 Senna/Docusate Sodium 1 Tablet PO BID PRN PRN Constipation Sodium Chloride 10 - 40 ml 06/10/24 20:08 0.9 % Nacl (Sterile) Posiflush 10 Ml IV UD PRN Port access or dressing change Sodium Chloride 10 - 40 ml 06/10/24 20:08 06/10/24 21:49 0.9% Saline Lock 10 Ml Syringe IV 10 ml UD PRN Administration Port-a-Cath (VAD) Flush PFSH Medical History (Updated 06/10/24 @ 20:14 by Nahed Bang) Bipolar disorder Anxiety Depression Hypothyroidism Rheumatoid arthritis Osteoporosis GERD (gastroesophageal reflux disease) Smoker Asthma Migraines Seizures Home Medications ?Medication ?Instructions ?Recorded ?Last Taken ?Type albuterol sulfate 90 mcg/actuation 2 puff inhalation Q4H PRN 06/10/24 06/10/24 History aerosol inhaler (Ventolin HFA) shortness of breath or wheezing clonazepam 0.5 mg tablet 0.5 mg PO DAILY 06/10/24 06/09/24 History duloxetine 30 mg capsule,delayed 90 mg PO DAILY 06/10/24 06/10/24 History release gabapentin 800 mg tablet 1,600 mg PO TID 06/10/24 06/10/24 History hydroxychloroquine 200 mg tablet 400 mg PO DAILY 06/10/24 06/10/24 History ipratropium 0.5 mg-albuterol 3 mg 3 ml inhalation Q8H PRN shortness 06/10/24 06/09/24 History (2.5 mg base)/3 mL nebulization of breath soln levothyroxine 200 mcg tablet 200 mcg PO DAILY 06/10/24 06/10/24 History quetiapine 300 mg tablet 300 mg PO QHS 06/10/24 06/09/24 History rimegepant 75 mg disintegrating 75 mg PO QODAY 06/10/24 Unknown History tablet (Nurtec ODT) Allergy/AdvReac Type Severity Reaction Status Date / Time leflunomide Allergy Severe Abd Verified 06/10/24 15:21 cramps/diarrhea NSAIDS (Non-Steroidal Allergy Severe Other Verified 06/10/24 15:21 Anti-Inflamma atomoxetine Allergy Intermediate NEEDS Verified 06/10/24 15:21 FOLLOW-UP cefprozil (From Cefzil) Allergy Intermediate Rash Verified 06/10/24 15:21 sucralfate Allergy Intermediate Nausea Verified 06/10/24 15:21 Surgical History (Updated 06/11/24 @ 14:[address] Marky House MD) S/P colonoscopy H/O esophagogastroduodenoscopy History of cholecystectomy Social History Smoking Status: Former smoker Review of Systems (Anesthesia) ROS Narrative System reviewed and no additional complaints, except as documented.
[2024-06-11 15:05] LABS: Pathologist Review Reviewed
--- NOTE | 2024-06-11 15:15 | EGD_PTH ---
PATIENT: BONNY OREILLY LOC: MS3 U#:[id number] AGE/SX: 39/F ROOM: WI313 RE06/10/[address]: Dr. Rafal Montero DO : 1985 BED: 1 DIS: 06/13/2024 SPEC #: [id number] RECD: 06/12/24 09:17 STATUS: GABRIELLA RESheron #: [id number] CHICO: 06/11/24 15:[address]: Curtis Guadalupe DEPT: SURGICAL PATHOLOGY RECD BY: Elis Holcomb ENTERED: 06/12/24 10:14 SP TYPE: EGD BIOPSY OTHR DR: MD Dr. Rafal Alvarez DO Dr. Paige Pierce, MD Dr. Rahsaan Friend, DO Tissues: A - Esophagus, NOS B - Stomach, NOS Procedures: Surgery Specimen Level IV Comments: @ Ordering doctor for SUIV edited from to @ by ANNY at 06/12/24 1317 @ Submitting doctor edited from to @ by ANNY at 06/12/24 1317 HEADER OPERATION: EGD with biopsies and dilation PRE-OP DIAGNOSIS: Abnormal CT TISSUE SUBMITTED: A- Random esophageal biopsy, B- Stomach biopsies MICROSCOPIC DIAGNOSIS A. Esophagus, random biopsy: Fragments of squamous mucosa with mild chronic inflammation. See comment. B. Stomach, biopsy: Minimal gastritis. See microscopic description and comment. 06/13/2024 COMMENT A. Rare eosinophils are noted. Increased number of eosinophils consists with eosinophilic esophagitis are not seen. B. The results of immunohistochemistry for Helicobacter pylori will be reported separately ([id number]). MICROSCOPIC DESCRIPTION Slides are reviewed. B. The specimen shows fragments of gastric mucosa with chronic inflammatory cell infiltrates in the lamina propria consisting of lymphocytes and plasma cells, consistent with minimal chronic gastritis. GROSS DESCRIPTION A. Received in fixative is one container labeled with the patient's name and designated Random esophagus biopsy. The specimen consists of two irregular fragments of light alcantar soft tissue that in aggregate measure 0.5 x 0.5 x 0.1 cm. The specimen is totally submitted in one cassette. B. Received in fixative is one container labeled with the patient's name and designated Stomach biopsy. The specimen consists of one irregular fragment of light alcantar soft tissue that measures 0.5 x 0.4 x 0.1 cm. The specimen is totally submitted in one cassette. SJ.mr 06/12/2024 TC:3 CPT:35059x6
--- NOTE | 2024-06-11 15:15 | IMM_PTH ---
PATIENT: BONNY OREILLY LOC: MS3 U#:[id number] AGE/SX: 39/F ROOM: [facility] [place] RE06/10/[address]: Dr. Rafal Montero DO : 1985 BED: 1 DIS: 06/13/2024 SPEC #: [id number] RECD: 06/12/24 10:01 STATUS: GABRIELLA RESheron #: [id number] CHICO: 06/11/24 15:[address]: Curtis Guadalupe DEPT: IMMUNOHISTOCHEMISTRY RECD BY: Liu Lynne ENTERED: 06/12/24 10:02 SP TYPE: IMMUNO OTHR DR: MD Dr. Rafal Alvarez DO Dr. Paige Pierce, MD Tissues: Stomach, NOS Procedures: H Pylori (initial) PHYSICIAN & INSTITUTION [place] [id number] SPECIMEN INFORMATION: Tissue Source: B- Stomach biopsies Clinical Info: Abnormal CT Specimen Number: [id number] CPT code: 32083 METHODOLOGY: Deparaffinized sections of prefer/formalin-fixed tissue or PAP/DQ stained slides are incubated with monoclonal/polyclonal antibodies/oligonucleotide probes. Localization is made via biotin free immunoperoxidase method. Appropriate controls are performed and reacted as expected. Results on target cell population are indicated in the following table: RESULTS: ANTIBODY / CLONE RESULT Block B H Pylori (polyclonal) negative These tests were developed and their performance characteristics determined by [facility]. They may not have been cleared or approved by the U.S. Food and Drug Administration. The FDA has determined that such clearance or approval is not necessary. The above immunohistochemical/dualISH markers are ordered and reviewed by the Pathologist. INTERPRETATION: B. Stomach, biopsies: Negative for Helicobacter pylori organisms. 06/13/2024
--- NOTE | 2024-06-11 17:36 | CON.PCM.GI_ITS ---
HPI Consult Data Date of Consult: 06/11/24 HPI Narrative Reason for Consultation: Abnormal imaging HPI Narrative: BONNY OREILLY, is a 39 F with history of COVID in 2020, asthma, hypothyroidism, depression and anxiety, tobacco use presented to [facility] ED 06/10/2024 from PCP office for 3 days of worsening cough and dyspnea. Patient reports pulse ox was 30s and 50s yesterday and was using her significant others O2. Also has some chest tightness and pain with deep breathing, has RSV exposure. Has also had some cough that is nonproductive and increased wheezing at home. Pulse ox at PCPs office in the 80s and sent here by EMS. On arrival patient 91% on 2 L nasal cannula. Patient found to have white blood cell count of 18.7 and was hypoxic. CTA of chest with no PE but had right sided pneumonia. COVID, RSV, flu negative but full viral panel pending. Given the elevated white cell count with hypoxia and infiltrate patient treated with DuoNeb and Coverage and hospitalist contacted for admission. Patient seen at bedside and reports she has been having increased cough and shortness of breath over the past week, has also been having some diarrhea over the past couple of weeks and has not had a very good appetite over that same time. Has been having right sided chest and right sided back pain. Also reports she thinks that she has been having fevers but has not measured them. Has been using her albuterol rescue inhaler due to her history of asthma but it is not as helpful at this time. Patient yesterday check pulse ox at home and was 50% and put on her 's O2. Saw PCP today and due to being hypoxic in the ED she was sent to the ED. I was called to see her because she had imaging that showed a fluid-filled esophagus. She does have intermittent esophageal dysphagia. She does have a history of reflux disease. She does not take anything for reflux disease on a daily basis. [facility] Medical History (Updated 06/11/24 @ 17:[address] Acevedo Friend, ) Bipolar disorder Anxiety Depression Hypothyroidism Rheumatoid arthritis Osteoporosis GERD (gastroesophageal reflux disease) Smoker Asthma Migraines Seizures Home Medications ?Medication ?Instructions ?Recorded ?Last Taken ?Type albuterol sulfate 90 mcg/actuation 2 puff inhalation Q4H PRN 06/10/24 06/10/24 History aerosol inhaler (Ventolin HFA) shortness of breath or wheezing clonazepam 0.5 mg tablet 0.5 mg PO DAILY 06/10/24 06/09/24 History duloxetine 30 mg capsule,delayed 90 mg PO DAILY 06/10/24 06/10/24 History release gabapentin 800 mg tablet 1,600 mg PO TID 06/10/24 06/10/24 History hydroxychloroquine 200 mg tablet 400 mg PO DAILY 06/10/24 06/10/24 History ipratropium 0.5 mg-albuterol 3 mg 3 ml inhalation Q8H PRN shortness 06/10/24 06/09/24 History (2.5 mg base)/3 mL nebulization of breath soln levothyroxine 200 mcg tablet 200 mcg PO DAILY 06/10/24 06/10/24 History quetiapine 300 mg tablet 300 mg PO QHS 06/10/24 06/09/24 History rimegepant 75 mg disintegrating 75 mg PO QODAY 06/10/24 Unknown History tablet (Nurtec ODT) Allergy/AdvReac Type Severity Reaction Status Date / Time leflunomide Allergy Severe Abd Verified 06/10/24 15:21 cramps/diarrhea NSAIDS (Non-Steroidal Allergy Severe Other Verified 06/10/24 15:21 Anti-Inflamma atomoxetine Allergy Intermediate NEEDS Verified 06/10/24 15:21 FOLLOW-UP cefprozil (From Cefzil) Allergy Intermediate Rash Verified 06/10/24 15:21 sucralfate Allergy Intermediate Nausea Verified 06/10/24 15:21 Surgical History (Updated 06/11/24 @ 14:[address] Marky House MD) S/P colonoscopy H/O esophagogastroduodenoscopy History of cholecystectomy Social History Smoking Status: Former smoker ROS ROS Narrative General: Has felt feverish HENT: Some headaches and sore throat EYES: Denies changes in vision Resp: Increasing shortness of breath and cough, difficulty expelling sputum Cardiac: Right sided chest and back pain GI: Denies abdominal pain, has had some loose stool, denies nausea/vomiting : Denies changes in urination Extremity: Denies swelling MSK: Feels generally weak and unwell Neuro: Denies any numbness/tingling Heme: Denies any bleeding or bruising Skin: Denies rashes Psychiatric: No complaints voiced Physical Exam Const alert and no apparent distress HEENT head/scalp atraumatic and moist oral mucous membranes Resp normal respiratory effort, no retractions, no use of accessory muscles and clear to auscultation bilaterally Cardio regular rate, regular rhythm, S1 normal heart sound and S2 normal heart sound GI normal to inspection, nondistended, normoactive bowel sounds, soft to palpation, non-tender and non-distended Extremity normal to inspection and full ROM Neuro Sensorium / Orientation: awake and alert Lab / Micro Data 06/11/24 07:30 06/11/24 07:30 Labs: Laboratory Results - last 24 hr 06/10/24 16:02: Diff Path Review Reviewed 06/10/24 17:15: Lactic Acid 1.1 06/10/24 18:18: Troponin I High Sens 8 06/11/24 07:30: WBC 14.7 H, RBC 3.09 L, Hgb 8.7 L, Hct 27.3 L, MCV 88.3, MCH 28.2, MCHC 31.9 L, RDW Std Deviation 51.8 H, RDW Coeff of Maxi 16.3 H, Plt Count 198, MPV 9.9, Immature Gran % (Auto) 1.200 H, Neut % (Auto) 90.7 H, Lymph % (Auto) 2.7 L, [place] % (Auto) 5.1, Eos % (Auto) 0.0, Baso % (Auto) 0.3, Absolute Neuts (auto) 13.3 H, Absolute Lymphs (auto) 0.40 L, Nucleated RBC % 0, Sodium 139, Potassium 4.0, Chloride 111 H, Carbon Dioxide 22.0, Anion Gap 6, BUN 13, Creatinine 0.81, Estim Creat Clear Calc 102.99, Est GFR (MDRD) Af Amer 102, Est GFR (MDRD) Non-Af 84, BUN/Creatinine Ratio 16.1, Glucose 115 H, Calcium 8.4 L, Magnesium 1.8, Iron 17 L, TIBC 336, Iron Saturation 5.1 L, Ferritin 85, Total Bilirubin 0.40, AST 23, ALT 21, Alkaline Phosphatase 74, Total Protein 6.7, Albumin 3.4, Globulin 3.3, Albumin/Globulin Ratio 1.0, Vitamin B12 490, Folate 4.00, TSH 37.700 H Micro: Microbiology 06/10/24 16:02 Mucosa - Nose SARS-CoV-2, Influenza & RSV (PCR) - Final ABG Data ABG results: ABG 06/10/24 16:14 Specimen Type HAO Assessment & Plan Assessment/Plan (1) Abnormal CT scan: PLAN: 39-year-old who comes in with shortness of breath and cough possibly secondary to aspiration pneumonia. On imaging she was shown to have fluid- filled esophagus. Differential diagnosis does include achalasia, esophageal stricture, esophageal ring, eosinophilic esophagitis. She will undergo an upper endoscopy evaluate upper GI tract. She was explained alternatives, risk, benefits include not withstanding bleeding, infection, sepsis, perforation, need for emergent surgery . She have an ASA of 3. Charges/Coding Visit Charges Inpatient E&M: 61329 Init Hosp L3
--- NOTE | 2024-06-11 17:56 | OP.EGD_ITS ---
Patient Name: Mamie Zarco Procedure Date: 06/11/2024 5:25 PM Date of : 1985 Age: 39 Procedure: Upper GI endoscopy Indications: Dysphagia, Abnormal CT of the GI tract Providers: Curtis Guadalupe DO Medicines: Monitored Anesthesia Care Patient Profile: This is a 39 year old female. Refer to note in patient chart for documentation of history and physical. Patient has symptoms of acute dysphagia. Complications: No immediate complications. Procedure: Pre-Anesthesia Assessment: - Prior to the procedure, a History and Physical was performed, and patient medications and allergies were reviewed. The patient is competent. The risks and benefits of the procedure and the sedation options and risks were discussed with the patient. All questions were answered and informed consent was obtained. Patient identification and proposed procedure were verified by the physician in the pre-procedure area. Mental Status Examination: alert and oriented. Airway Examination: normal oropharyngeal airway and neck mobility. Respiratory Examination: clear to auscultation. CV Examination: normal. Prophylactic Antibiotics: The patient does not require prophylactic antibiotics. Prior Anticoagulants: The patient has taken no anticoagulant or antiplatelet agents except for NSAID medication. ASA Grade Assessment: II - A patient with mild systemic disease. After reviewing the risks and benefits, the patient was deemed in satisfactory condition to undergo the procedure. The anesthesia plan was to use monitored anesthesia care (MAC). Immediately prior to administration of medications, the patient was re-assessed for adequacy to receive sedatives. The heart rate, respiratory rate, oxygen saturations, blood pressure, adequacy of pulmonary ventilation, and response to care were monitored throughout the procedure. The physical status of the patient was re-assessed after the procedure. After obtaining informed consent, the endoscope was passed under direct vision. Throughout the procedure, the patient's blood pressure, pulse, and oxygen saturations were monitored continuously. The Endoscope was introduced through the mouth, and advanced to the second part of duodenum. The upper GI endoscopy was accomplished without difficulty. The patient tolerated the procedure well. Scope In: 5:43:22 PM Scope Out: 5:48:50 PM Total Procedure Duration Time 0 hours 5 minutes 28 seconds Findings: Fluid was found in the entire esophagus. Fluid aspiration was performed. A pill was found in the middle third of the esophagus, 36 cm from the incisors. Mucosal changes including ringed esophagus, longitudinal furrows and small-caliber esophagus were found in the lower third of the esophagus. Biopsies were obtained from the proximal and distal esophagus with cold forceps for histology of suspected eosinophilic esophagitis. A guidewire was placed and the scope was withdrawn. Dilation was performed with a Savary dilator with no resistance at 60 Fr. The dilation site was examined and showed moderate mucosal disruption. Estimated blood loss was minimal. A medium-sized hiatal hernia was present. Localized mild inflammation characterized by erosions was found in the gastric body. Biopsies were taken with a cold forceps for histology. Verification of patient identification for the specimen was done. Estimated blood loss was minimal. Biopsies were taken with a cold forceps for Helicobacter pylori testing. Verification of patient identification for the specimen was done. Estimated blood loss was minimal. No gross lesions were noted in the duodenal bulb. Impression: - Fluid in the esophagus. Fluid aspiration performed. - A pill was found in the esophagus. - Esophageal mucosal changes consistent with eosinophilic esophagitis. Dilated. - Medium-sized hiatal hernia. - Chronic gastritis. Biopsied. - No gross lesions in the duodenal bulb. - Biopsies were taken with a cold forceps for evaluation of eosinophilic esophagitis. Recommendation: - [facility]. - Advance diet as tolerated and full liquid diet. - Continue present medications. - Await pathology results. Procedure Code(s): --- Professional --- 69674, Esophagogastroduodenoscopy, flexible, transoral; with insertion of guide wire followed by passage of dilator(s) through esophagus over guide wire 35131, 59,51, Esophagogastroduodenoscopy, flexible, transoral; with biopsy, single or multiple CPT copyright 2021 [employer]. All rights reserved. The codes documented in this report are preliminary and upon insurance coder review may be revised to meet current compliance requirements. Curtis Guadalupe DO 06/11/2024 5:56:21 PM This report has been signed electronically. Number of Addenda: 0 Note Initiated On: 06/11/2024 5:25 PM
--- NOTE | 2024-06-11 17:56 | PCM.POST.ANE ---
Anesthesia: Postop Eval I Current Vital Signs Temperature: 97.5 F Pulse Rate: 70 Blood Pressure: 111/64 Respiratory Rate: 16 Pulse Ox: 92 Oxygen Delivery Method: Nasal Cannula Oxygen Flow Rate (L/min): 2 Assessment Airway patent: Yes Spontaneous unlabored respirations: Yes Mental status: Awake and Calm nausea: No Vomiting: No Anesthesia Complication: No Fluid Hydration Crystalloid volume administer (ml): 400 Total IV fluid infused: 400 Progress Note Anesthesia document: Postop Eval 1 completed: Yes
--- NOTE | 2024-06-11 17:57 | OP.CCLET_ITS ---
06/11/2024 Zuri Wilson Md Re : Upper GI endoscopy procedure for Mamie Brinkr Steve This procedure was performed on Tuesday, June 11, 2024. My impressions and recommendations are as follows: Impressions : - Fluid in the esophagus. Fluid aspiration performed. - A pill was found in the esophagus. - Esophageal mucosal changes consistent with eosinophilic esophagitis. Dilated. - Medium-sized hiatal hernia. - Chronic gastritis. Biopsied. - No gross lesions in the duodenal bulb. - Biopsies were taken with a cold forceps for evaluation of eosinophilic esophagitis. Recommendations : - [facility]. - Advance diet as tolerated and full liquid diet. - Continue present medications. - Await pathology results. My findings are described in the full procedure note, which is enclosed. If I can be of further assistance, please feel free to contact me at . Sincerely, Curtis Guadalupe, 06/11/2024 5:56:21 PM This report has been signed electronically.
--- NOTE | 2024-06-11 18:27 | PCM.POSTANE2 ---
Anesthesia Postop Eval I Sum Postop Eval Completion status Anesthesia document: Postop Eval 1 completed: Yes Anesthesia Postop Eval I Summary Anesthesia Postop Eval I Summary: Anesthesia Postop Eval I: Assessment Summary Airway patent Yes 06/11/24 17:58 Spontaneous unlabored Yes 06/11/24 17:58 respirations Mental status Awake,Calm 06/11/24 17:58 nausea No 06/11/24 17:58 Vomiting No 06/11/24 17:58 Anesthesia Postop Eval I: Fluid Summary Crystalloid volume administer 400 06/11/24 17:58 (ml) Colloids volume administered ( ml) Blood Product volume administered (ml) Total IV fluid infused 400 06/11/24 17:58 Anesthesia Postop Eval I: Summary Notes Anesthesia Complication No 06/11/24 17:58 Anesthesia Complication Comment: Post-operative progress note Anesthesia: Postop Eval II Evaluation Mental status: Asleep Pain Level: 0 nausea: No Vomiting: No Complications Anesthesia Complication: No
[2024-06-11] MEDS: Ceftriaxone 2 GM in 0.9% Normal Saline (50mL MB+) 50 ML IV (22:20)
[2024-06-11] MEDS: Azithromycin 500 MG in Dextrose 5%-Water (250mL Bag) 250 ML 250 MG IV (22:53)
[2024-06-11] MEDS: QUEtiapine 100 MG Tablet 300 MG PO (22:53)
[2024-06-11] MEDS: guaiFENesin Dm 10 ML UDC 5 ML PO (22:54)
[2024-06-12] VITALS (24 sets, daily range): BP systolic 107–140; BP diastolic 57–79; PULSE 62–82; RESP 15–20; TEMP 36.1–36.9; O2SAT 88–98
[2024-06-12] MEDS: Levothyroxine 100 MCG Tablet 200 MCG PO (06:02)
[2024-06-12] MEDS: Gabapentin 800 MG Tablet 1600 MG PO ×3 (06:02→22:03)
[2024-06-12] MEDS: Morphine 2 MG/ML Syringe IV ×5 (06:26→21:34)
[2024-06-12] MEDS: 0.9 % NaCl (Sterile) Posiflush 10 mL IV (06:26)
[2024-06-12 06:29] LABS: Absolute Lymphocyte Count 0.76 X10^3/uL (0.83-4.51); Absolute Neutrophil Count 7.1 X10^3/uL (2.0-7.7); Basophil# 0.03 X10^3/uL; Basophil% 0.3 % (0-1); Eosinophil# 0.09 X10^3/uL; Hematocrit 27.2 % (37-47); Hemoglobin 8.4 g/dL (12.0-15.0); Lymphocyte # 0.76 X10^3/ul (0.83-4.51); Lymphocyte % 8.7 % (19-41); Mean Corp Hgb Conc 30.9 g/dL (32-36); Mean Corpuscular Hgb 27.8 pg (27.0-32.0); Mean Corpuscular Volume 90.1 fL (81-99); Monocyte# 0.58 X10^3/uL; Monocyte% 6.7 % (0-10); NRBC Flagged by Analyzer 0 % (0-5); Neutrophil # 7.12 X10^3/uL (2.7-7.7); Platelet Count 209 K/mm3 (150-450); RBC Distribution Width CV 16.5 % (11.6-14.6); RBC Distribution Width SD 53.4 fl (35.1-43.9); Red Blood Count 3.02 M/mm3 (4.2-5.4); White Blood Count 8.7 K/mm3 (4.4-11.0)
[2024-06-12 06:59] LABS: Anion Gap 3 (5-15); BUN 11 mg/dL (7-18); BUN/Creat Ratio 13.7 RATIO (10-20); Calcium,Total 8.4 mg/dL (8.5-10.1); Chloride 111 mmol/L (98-107); EST Glomerular Filtration Rate 85 mL/min (>60); Est Glom Filt Rate - Afr Amer 102 mL/min (>60); Glucose 83 mg/dL (74-106); Potassium 4.2 mmol/L (3.5-5.1); Sodium Level 140 mmol/L (136-145)
[2024-06-12] MEDS: Ipratropium/Albuterol Sulfate 3 ML AMPUL.NEB INHALATION ×5 (07:10→22:49)
--- NOTE | 2024-06-12 08:08 | PN.HOSP_ITS ---
Reason for Visit Reason for Visit: Diagnoses Pneumonia, unspecified organism (06/10/24) Abnormal findings on diagnostic imaging of other specified body structures (06/10/24) Subjective Subjective Feels she had more difficulty breathing today. Objective Data Objective Data Vital Signs: Vital Signs Temp Pulse Resp BP Pulse Ox O2 Del Method O2 Flow Rate 36.6 C 78 18 107/57 L 90 Nasal Cannula 2 06/12/24 03:16 06/12/24 07:10 06/12/24 07:10 06/12/24 03:16 06/12/24 07:10 06/12/24 07:10 06/12/24 07:10 Oxygen Flow Rate (L/min) 2 Oxygen Delivery Method Nasal Cannula Weight: 86 kg Body Mass Index (BMI) 30.6 Intake & Output: Intake and Output for Last 24 Hours 06/10/24 06/11/24 06/12/24 23:59 23:59 23:59 Intake Total 2042.5 / 2042.5 805 / 805 Balance 2042.5 / 2042.5 805 / 805 Lab / Micro Data 06/12/24 06:19 06/12/24 06:19 Labs: Laboratory Results - last 24 hr 06/10/24 16:02: Diff Path Review Reviewed 06/11/24 07:30: Sodium 139, Potassium 4.0, Chloride 111 H, Carbon Dioxide 22.0, Anion Gap 6, BUN 13, Creatinine 0.81, Estim Creat Clear Calc 102.99, Est GFR (MDRD) Af Amer 102, Est GFR (MDRD) Non-Af 84, BUN/Creatinine Ratio 16.1, Glucose 115 H, Calcium 8.4 L, Magnesium 1.8, Iron 17 L, TIBC 336, Iron Saturation 5.1 L, Ferritin 85, Total Bilirubin 0.40, AST 23, ALT 21, Alkaline Phosphatase 74, Total Protein 6.7, Albumin 3.4, Globulin 3.3, Albumin/Globulin Ratio 1.0, Vitamin B12 490, Folate 4.00, TSH 37.700 H 06/12/24 06:19: WBC 8.7, RBC 3.02 L, Hgb 8.4 L, Hct 27.2 L, MCV 90.1, MCH 27.8, MCHC 30.9 L, RDW Std Deviation 53.4 H, RDW Coeff of Maxi 16.5 H, Plt Count 209, MPV 10.0, Immature Gran % (Auto) 1.300 H, Neut % (Auto) 82.0 H, Lymph % (Auto) 8.7 L, [place] % (Auto) 6.7, Eos % (Auto) 1.0, Baso % (Auto) 0.3, Absolute Neuts (auto) 7.1, Absolute Lymphs (auto) 0.76 L, Nucleated RBC % 0, Sodium 140, Potassium 4.2, Chloride 111 H, Carbon Dioxide 27.0, Anion Gap 3 L, BUN 11, Creatinine 0.80, Estim Creat Clear Calc 104.30, Est GFR (MDRD) Af Amer 102, Est GFR (MDRD) Non-Af 85, BUN/Creatinine Ratio 13.7, Glucose 83, Calcium 8.4 L Micro: Microbiology 06/10/24 16:02 Mucosa - Nose SARS-CoV-2, Influenza & RSV (PCR) - Final Physical Exam Const alert and no apparent distress HEENT head/scalp atraumatic and moist oral mucous membranes Resp normal respiratory effort and no retractions Resp Narrative: Coarse wheezes throughout. Cardio regular rate and regular rhythm GI normal to inspection, nondistended, normoactive bowel sounds and soft to palpation Extremity normal to inspection and full ROM Neuro Sensorium / Orientation: awake and alert Assessment & Plan Assessment/Plan (1) Pneumonia: PLAN: Plan Suspected pneumococcal pneumonia * Right upper and right middle lobe infiltrate * Ceftriaxone and azithromycin. Pulmonary toilet * Sputum culture, COVID negative, respiratory panel pending, Urine antigens * PEP therapy Possible acute asthma exacerbation * Bronchodilators and add methylprednisolone for today and then start prednisone starting tomorrow. Fluid-filled esophagus * Seen on CT of chest * EGD: showed fluid in esophagus. Pill in the esophagus. Medium-sized hiatal hernia. Chronic gastritis. Findings cw eosinophilic esophagitis (biopsied and dilated). Hypokalemia * resolved after replacement Anemia * Hg dropped from 10.4 to 8. * Monitor. Check iron studies, B12, folate Chronic conditions * History of chronic asthma-Uses albuterol as needed at home-Nebs as above-Does not seem to be in acute exacerbation, suspect this is all pneumonia related, no wheezing at this time either * Mood disorder NOS-Continue Seroquel and duloxetine-Continue Klonopin as needed-Insert gabapentin * Hypothyroidism-Continue Synthroid * Tobacco use-Advise cessation-Nicotine replacement available if desired * On hydroxychloroquine-Will need to clarify indication, when discussing medications and health problems with patient earlier at bedside this was not mentioned -Will continue at this time * Chronic right sided chest port-Patient has history of being on IV antibiotics and steroids and has had difficult access since that time-She is chronic right sided chest port in place, noted VTE prophylaxis: LMWH Charges/Coding Visit Charges Inpatient E&M: 04613 Subs Hosp L2
[2024-06-12] MEDS: 0.9% Saline Lock 10 ML Syringe IV ×4 (10:00→17:19)
[2024-06-12] MEDS: Ensure Plus High Protein 120 ML LIQUID PO ×2 (10:00→12:09)
[2024-06-12] MEDS: Enoxaparin 40 MG/0.4 ML Syringe SC (10:04)
[2024-06-12] MEDS: DULoxetine Hcl 30 MG Capsule 90 MG PO (10:04)
[2024-06-12] MEDS: guaiFENesin 1,200 MG Tablet 1200 MG PO ×2 (10:04→21:29)
[2024-06-12] MEDS: Hydroxychloroquine 200 MG Tablet 400 MG PO (10:04)
[2024-06-12] MEDS: oxyCODONE 5 MG Tablet PO (12:09)
[2024-06-12] MEDS: Acetaminophen 325 MG Tablet 650 MG PO (12:09)
[2024-06-12] MEDS: clonazePAM 0.5 MG Tablet PO (12:09)
[2024-06-12] MEDS: Ceftriaxone 2 GM in 0.9% Normal Saline (50mL MB+) 50 ML IV (21:29)
[2024-06-12] MEDS: QUEtiapine 100 MG Tablet 300 MG PO (22:02)
[2024-06-12] MEDS: Azithromycin 500 MG in Dextrose 5%-Water (250mL Bag) 250 ML 250 MG IV (22:05)
[2024-06-13] VITALS (8 sets, daily range): BP systolic 121–125; BP diastolic 74–76; PULSE 65–78; RESP 15–18; TEMP 36.4–36.9; O2SAT 84–97
[2024-06-13] MEDS: Morphine 2 MG/ML Syringe IV (03:55)
[2024-06-13 05:46] LABS: Absolute Lymphocyte Count 0.36 X10^3/uL (0.83-4.51); Absolute Neutrophil Count 6.6 X10^3/uL (2.0-7.7); Basophil# 0.01 X10^3/uL; Basophil% 0.1 % (0-1); Hematocrit 28.8 % (37-47); Hemoglobin 9.1 g/dL (12.0-15.0); Lymphocyte # 0.36 X10^3/ul (0.83-4.51); Lymphocyte % 4.9 % (19-41); Mean Corp Hgb Conc 31.6 g/dL (32-36); Mean Corpuscular Volume 88.6 fL (81-99); Monocyte# 0.23 X10^3/uL; Monocyte% 3.2 % (0-10); NRBC Flagged by Analyzer 0 % (0-5); Neutrophil # 6.63 X10^3/uL (2.7-7.7); Neutrophil % 91.1 % (47-70); POSITIVE DIFFERENTIAL YES; Platelet Count 243 K/mm3 (150-450); RBC Distribution Width CV 15.9 % (11.6-14.6); RBC Distribution Width SD 51.9 fl (35.1-43.9); Red Blood Count 3.25 M/mm3 (4.2-5.4); White Blood Count 7.3 K/mm3 (4.4-11.0)
[2024-06-13 06:31] LABS: Anion Gap 5 (5-15); BUN 10 mg/dL (7-18); BUN/Creat Ratio 13.6 RATIO (10-20); Calcium,Total 8.9 mg/dL (8.5-10.1); Chloride 107 mmol/L (98-107); Creatinine, Serum 0.73 mg/dL (0.55-1.02); EST Glomerular Filtration Rate 94 mL/min (>60); Est Glom Filt Rate - Afr Amer 113 mL/min (>60); Glucose 109 mg/dL (74-106); Potassium 4.3 mmol/L (3.5-5.1); Sodium Level 137 mmol/L (136-145)
[2024-06-13] MEDS: Levothyroxine 100 MCG Tablet 200 MCG PO (06:44)
[2024-06-13] MEDS: Gabapentin 800 MG Tablet 1600 MG PO ×2 (06:47→13:40)
[2024-06-13] MEDS: Ipratropium/Albuterol Sulfate 3 ML AMPUL.NEB INHALATION ×2 (07:16→13:34)
--- NOTE | 2024-06-13 07:37 | PN.HOSP_ITS ---
Reason for Visit Reason for Visit: Diagnoses Pneumonia, unspecified organism (06/10/24) Abnormal findings on diagnostic imaging of other specified body structures (06/10/24) Subjective Subjective Breathing better. Pt ambulated with 6 liters, but it was noted that her Raynauds was acting up. Fingers were warmed up and she was stable on room air. Objective Data Objective Data Vital Signs: Vital Signs Temp Pulse Resp BP Pulse Ox O2 Del Method O2 Flow Rate 36.9 C 78 16 121/74 H 96 Nasal Cannula 3 06/13/24 03:29 06/13/24 07:17 06/13/24 07:17 06/13/24 03:29 06/13/24 07:17 06/13/24 07:17 06/13/24 07:17 Oxygen Flow Rate (L/min) 3 Oxygen Delivery Method Nasal Cannula Weight: 86 kg Body Mass Index (BMI) 30.6 Intake & Output: Intake and Output for Last 24 Hours 06/11/24 06/12/24 06/13/24 23:59 23:59 23:59 Intake Total 805 / 805 305 / 305 Balance 805 / 805 305 / 305 Lab / Micro Data 06/13/24 05:30 06/13/24 05:30 Labs: Laboratory Results - last 24 hr 06/13/24 05:30: WBC 7.3, RBC 3.25 L, Hgb 9.1 L, Hct 28.8 L, MCV 88.6, MCH 28.0, MCHC 31.6 L, RDW Std Deviation 51.9 H, RDW Coeff of Maxi 15.9 H, Plt Count 243, MPV 10.0, Immature Gran % (Auto) 0.700, Neut % (Auto) 91.1 H, Lymph % (Auto) 4.9 L, [place] % (Auto) 3.2, Eos % (Auto) 0.0, Baso % (Auto) 0.1, Absolute Neuts (auto) 6.6, Absolute Lymphs (auto) 0.36 L, Nucleated RBC % 0, Sodium 137, Potassium 4.3, Chloride 107, Carbon Dioxide 26.0, Anion Gap 5, BUN 10, Creatinine 0.73, Estim Creat Clear Calc 114.30, Est GFR (MDRD) Af Amer 113, Est GFR (MDRD) Non-Af 94, BUN/Creatinine Ratio 13.6, Glucose 109 H, Calcium 8.9 Micro: Microbiology 06/10/24 16:02 Mucosa - Nose SARS-CoV-2, Influenza & RSV (PCR) - Final Physical Exam Const alert and no apparent distress Constitutional Narrative: lying in bed no respiratory distress. no conversational dyspnea. HEENT head/scalp atraumatic and moist oral mucous membranes Resp Resp Narrative: coarse wheezes bilaterally. Cardio regular rate and S1 normal heart sound Neuro Sensorium / Orientation: awake and alert Assessment & Plan Assessment/Plan (1) Pneumonia: PLAN: Plan Suspected pneumococcal pneumonia * Right upper and right middle lobe infiltrate * Ceftriaxone and azithromycin. Pulmonary toilet * Sputum culture, COVID influenza, RSV negative, respiratory panel pending, Urine antigens * PEP therapy Possible acute asthma exacerbation * prednisone. * follow up with Dr. Bertrand at [facility]. Fluid-filled esophagus * Seen on CT of chest * EGD: showed fluid in esophagus. Pill in the esophagus. Medium-sized hiatal hernia. Chronic gastritis. Findings cw eosinophilic esophagitis (biopsied and dilated). * follow up with GI as outpt. Hypokalemia * resolved after replacement Anemia * Hg dropped from 10.4 to 8. * Iron low. Start Ferrous sulfate EOD. Chronic conditions * History of chronic asthma-Uses albuterol as needed at home-Nebs as above-Does not seem to be in acute exacerbation, suspect this is all pneumonia related, no wheezing at this time either * Mood disorder NOS-Continue Seroquel and duloxetine-Continue Klonopin as needed-Insert gabapentin * Hypothyroidism-Continue Synthroid * Tobacco use-Advise cessation-Nicotine replacement available if desired * On hydroxychloroquine-Will need to clarify indication, when discussing medications and health problems with patient earlier at bedside this was not mentioned -Will continue at this time * Chronic right sided chest port-Patient has history of being on IV antibiotics and steroids and has had difficult access since that time-She is chronic right sided chest port in place, noted VTE prophylaxis: LMWH
[2024-06-13] MEDS: Ensure Plus High Protein 120 ML LIQUID PO ×2 (07:43→11:30)
[2024-06-13] MEDS: Enoxaparin 40 MG/0.4 ML Syringe SC (07:44)
[2024-06-13] MEDS: predniSONE 20 MG Tablet 40 MG PO (07:45)
[2024-06-13] MEDS: DULoxetine Hcl 30 MG Capsule 90 MG PO (07:45)
[2024-06-13] MEDS: Hydroxychloroquine 200 MG Tablet 400 MG PO (07:45)
[2024-06-13] MEDS: guaiFENesin 1,200 MG Tablet 1200 MG PO (07:49)
[2024-06-13] MEDS: Acetaminophen 325 MG Tablet 650 MG PO (07:49)
[2024-06-13] MEDS: oxyCODONE 5 MG Tablet PO (07:50)
[2024-06-13] MEDS: Ketorolac 15 MG/ML Vial IV (08:36)
[2024-06-13] MEDS: 0.9% Saline Lock 10 ML Syringe IV (08:37)
--- NOTE | 2024-06-13 12:31 | PCM.DC.SUM ---
Providers Date of Admission: 06/10/24 Primary Care Physician: Zuri Wilson MD Consultations 06/10/24 20:25 Consult: Gastroenterology Routine Consulting Provider: Friend,Curtis Reason for Consult: Fluid filled esophagus, unclear etiology EMERGENT Consult: No MD Notified: Yes Date Notified: 06/11/24 Time Notified: 08:08 Method of Notification: Text Reason For Visit: PNEUMONIA Diagnosis Discharge Diagnosis (1) Pneumonia: Status: Acute Code(s): J18.9 - Pneumonia, unspecified organism Plan Suspected pneumococcal pneumonia Right upper and right middle lobe infiltrate Ceftriaxone and azithromycin. Pulmonary toilet Sputum culture, COVID influenza, RSV negative, respiratory panel pending, Urine antigens PEP therapy Possible acute asthma exacerbation prednisone. follow up with Dr. Bertrand at [facility]. Fluid-filled esophagus Seen on CT of chest EGD: showed fluid in esophagus. Pill in the esophagus. Medium-sized hiatal hernia. Chronic gastritis. Findings cw eosinophilic esophagitis (biopsied and dilated). follow up with GI as outpt. Hypokalemia resolved after replacement Anemia Hg dropped from 10.4 to 8. Iron low. Start Ferrous sulfate EOD. Chronic conditions History of chronic asthma-Uses albuterol as needed at home-Nebs as above-Does not seem to be in acute exacerbation, suspect this is all pneumonia related, no wheezing at this time either Mood disorder NOS-Continue Seroquel and duloxetine-Continue Klonopin as needed-Insert gabapentin Hypothyroidism-Continue Synthroid Tobacco use-Advise cessation-Nicotine replacement available if desired On hydroxychloroquine-Will need to clarify indication, when discussing medications and health problems with patient earlier at bedside this was not mentioned -Will continue at this time Chronic right sided chest port-Patient has history of being on IV antibiotics and steroids and has had difficult access since that time-She is chronic right sided chest port in place, noted VTE prophylaxis: LMWH Medications at Discharge Home Medications albuterol sulfate 90 mcg/actuation aerosol inhaler (Ventolin HFA) 2 puff inhalation Q4H PRN shortness of breath or wheezing 06/10/24 clonazepam 0.5 mg tablet 0.5 mg PO DAILY 06/10/24 duloxetine 30 mg capsule,delayed release 90 mg PO DAILY 06/10/24 gabapentin 800 mg tablet 1,600 mg PO TID 06/10/24 hydroxychloroquine 200 mg tablet 400 mg PO DAILY 06/10/24 ipratropium 0.5 mg-albuterol 3 mg (2.5 mg base)/3 mL nebulization soln 3 ml inhalation Q8H PRN shortness of breath 06/10/24 levothyroxine 200 mcg tablet 200 mcg PO DAILY 06/10/24 quetiapine 300 mg tablet 300 mg PO QHS 06/10/24 rimegepant 75 mg disintegrating tablet (Nurtec ODT) 75 mg PO QODAY 06/10/24 amoxicillin 875 mg-potassium clavulanate 125 mg tablet 1 tab PO BID #8 tabs 06/13/24 guaifenesin 1,200 mg tablet, extended release 12 hr (Mucus Relief ER) 1,200 mg PO BID #10 tabs 06/13/24 prednisone 20 mg tablet 40 mg (2 x 20 mg) PO BREAKFAST #8 tabs 06/13/24 Hospital Course Operations None Procedures None Summary of Care Provided Minutes Spent on Discharge: 33 Hospital Course: Patient presents with shortness of breath and hypoxia. Patient was found to have pneumonia on CAT scan was started on antibiotics. Was still wheezing and does have a history of asthma was started on methylprednisolone. Has improved overall. Patient will be discharged with antibiotics and steroids upon discharge. 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 Weight / BMI Weight Weight: 86 kg Body Mass Index (BMI) 30.6 ABG / Lab / Microbiology Data 06/13/24 05:30 06/13/24 05:30 Laboratory: Laboratory Results - last 24 hr 06/13/24 05:30: WBC 7.3, RBC 3.25 L, Hgb 9.1 L, Hct 28.8 L, MCV 88.6, MCH 28.0, MCHC 31.6 L, RDW Std Deviation 51.9 H, RDW Coeff of Maxi 15.9 H, Plt Count 243, MPV 10.0, Immature Gran % (Auto) 0.700, Neut % (Auto) 91.1 H, Lymph % (Auto) 4.9 L, [place] % (Auto) 3.2, Eos % (Auto) 0.0, Baso % (Auto) 0.1, Absolute Neuts (auto) 6.6, Absolute Lymphs (auto) 0.36 L, Nucleated RBC % 0, Sodium 137, Potassium 4.3, Chloride 107, Carbon Dioxide 26.0, Anion Gap 5, BUN 10, Creatinine 0.73, Estim Creat Clear Calc 114.30, Est GFR (MDRD) Af Amer 113, Est GFR (MDRD) Non-Af 94, BUN/Creatinine Ratio 13.6, Glucose 109 H, Calcium 8.9 Microbiology: Microbiology 06/10/24 17:15 Blood Culture (Wb) - Port Blood Culture - Preliminary No growth in 48 hours. 06/10/24 16:02 Mucosa - Nose SARS-CoV-2, Influenza & RSV (PCR) - Final D/C Instructions Discharge Diet: No restrictions Meaningful Use Info Meaningful Use Meaningful Use Diagnoses (Choose all that apply): None applicable Ischemic Stroke Statin Dosing Therapy Reference: STATIN DOSE THERAPY REFERENCE: * Patients > 75 years receive moderate or high dose statin therapy. * Patients 75 years or YOUNGER should receive HIGH intensity statin dose unless contraindicated. You will be required to document reason for non-treatment if statin daily dose does not meet guidelines. HIGH DOSE STATIN THERAPY DAILY Atorvastatin > than or = to 40 mg Rosuvastatin > than or = to 20 mg Amlodipine + Atorvastatin > than or = to 2.5/40 mg Ezetimibe + Simvastatin 10/80 mg Simvastatin 80mg Discharge Plan Admission Admit Date/Time: 06/10/24 18:15 Primary Reason for Your Visit: Pneumonia Attending Provider: Rafal Montero Primary Care Provider: Zuri Wilson Consulting Providers: Sunshine Lin; Friend,Curtis Instructions Additional Instructions / Restrictions: Follow up with Dr. Bertrand in the next few months. Discharge Orders/Prescriptions Prescriptions: New guaifenesin [Mucus Relief ER] 1,200 mg Tablet Extended Release 12hr 1,200 mg PO BID Qty: 10 0RF prednisone 20 mg Tablet 40 mg PO BREAKFAST Qty: 8 0RF amoxicillin-pot clavulanate 875-125 mg tablet 1 tab PO BID Qty: 8 0RF Continued ipratropium-albuterol 0.5 mg-3 mg(2.5 mg base)/3 mL solution for nebulization 3 ml inhalation Q8H PRN (Reason: shortness of breath) quetiapine 300 mg tablet 300 mg PO QHS clonazepam 0.5 mg tablet 0.5 mg PO DAILY gabapentin 800 mg tablet 1,600 mg PO TID hydroxychloroquine 200 mg tablet 400 mg PO DAILY Rx Instructions: 2 tabs mon through sat then 1.5 tabs sun albuterol sulfate [Ventolin HFA] 90 mcg/actuation HFA aerosol inhaler 2 puff inhalation Q4H PRN (Reason: shortness of breath or wheezing) duloxetine 30 mg capsule,delayed release(DR/EC) 90 mg PO DAILY Nurtec ODT 75 mg tablet,disintegrating 75 mg PO QODAY levothyroxine 200 mcg tablet 200 mcg PO DAILY Rx Instructions: 1 tab mon through sat and 1/2 tab sun Referrals / Follow Up: Zuri Wilson MD [Primary Care Provider] - Within 2 Weeks Disposition Disposition (needs filled in before D/C Order can be placed): Home, Self Care Charges/Coding Visit Charges Inpatient E&M: 22738 Disch Hosp >30min
--- NOTE | 2024-06-13 13:23 | NURSING ---
This RN performed a walking home oxygen qualification with pt around 0830 this morning. Pt was requiring 6L NC to maintain above 88% SpO2. The pt stated that she has really bad Raynaud's and it can effect SpO2 reading. Pt tried to warm up hands and another home oxygen qualification was performed around 1030. This time, pt maintained at 90% SpO2 while ambulating on room air. Dr Montero and case management aware.
[2024-06-13] MEDS: clonazePAM 0.5 MG Tablet PO (13:40)
[2024-06-13] MEDS: 0.9 % NaCl (Sterile) Posiflush 10 mL IV (13:45)
== END 2024-06-13 15:15 | disposition home or self-care (01) | DRG 194 ==
LOC: ED 19:29 → MS3 19:59
PROVIDERS: Internal Medicine Gastroenterology; Admitting Provider Internal Medicine; Emergency Provider Emergency Medicine; PCP Family Medicine
PROC: 0DJ08ZZ Inspection of Upper Intestinal Tract, Via Natural or Artificial Opening Endoscopic (ICD-10-PCS; CPT 43235; principal; 2024-06-11 15:10)
DX: J13 Pneumonia due to Streptococcus pneumoniae (principal); J45.901 Unspecified asthma with (acute) exacerbation; F31.9 Bipolar disorder, unspecified; D64.9 Anemia, unspecified; E03.9 Hypothyroidism, unspecified; E87.6 Hypokalemia; K44.9 Diaphragmatic hernia without obstruction or gangrene; K20.0 Eosinophilic esophagitis; K29.50 Unspecified chronic gastritis without bleeding; Z79.890 Hormone replacement therapy; Z87.891 Personal history of nicotine dependence; Z79.1 Long term (current) use of non-steroidal anti-inflammatories (NSAID); R13.10 Dysphagia, unspecified; Z90.49 Acquired absence of other specified parts of digestive tract; Z86.16 Personal history of COVID-19
CPT/HCPCS: 36591; 36600; 71045; 71275; 80048; 80053; 82607; 82728; 82746; 82803; 83540; 83550; 83605; 83735; 84443; 84484; 84703; 85025; 85610; 85730; 87040; 87631; 88305; 88342; 93005; 94640; 94668; 97802; 99285; J7030; J7040; J7050; J7120; Q9967; A4216; C1769; J0696; J2405